=== PATIENT | male | born 1960 | race Caucasian/White ===

== ENCOUNTER → 2017-02-10 | Day surgery (SDC) | payer BC ==
[~2017-02-10] MED LIST: Lactated Ringers 1,000 ML IV SCH; Propofol 200 MG/20 ML SDV IV ONE
[2017-02-10 12:41] VITALS: BP 139/84
--- NOTE | 2017-02-13 07:03 | OR ---
DATE OF OPERATION: 02/10/2017 PREOPERATIVE DIAGNOSIS: 1. ALTERED BOWEL HABITS. 2. ABDOMINAL PAIN. POSTOPERATIVE DIAGNOSIS: 1. ALTERED BOWEL HABITS. 2. ABDOMINAL PAIN. SURGEON: Mike Tirado MD PROCEDURE: FULL-LENGTH COLONOSCOPY WITH RANDOM BIOPSIES X8. 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 COMPLICATIONS: None. SPECIMEN: Random biopsies from cecum to rectum. FINDINGS: 1. Full-length colonoscopy. 2. Focal sigmoid colitis. 3. Moderate sigmoid diverticulosis. RECOMMENDATIONS: Follow up with medical provider once pathology reports are back. INDICATIONS: The patient has been having some ongoing issues with back pain, diarrhea, and abdominal cramping. Dr. Fontanez sent him for colonoscopy after CT scan of the abdomen was benign. DESCRIPTION OF PROCEDURE: The patient was prepped and draped, placed in the left lateral decubitus position. A lubricated Olympus colonoscope was inserted and easily advanced to the cecum. The patient is extremely tortuous and redundant with his colon, but this scope does pass easy, we were able to get into the cecal pouch, but due to the length of the colon and its redundancy I could not unfortunately get into the terminal ileum as his vault made it impossible maneuver into. The bowel prep was otherwise fine, with lot of liquid stool, but all easily suctioned. Upon withdrawal throughout the right transverse and descending colon, no gross abnormalities were seen. We did do random biopsies of the cecum, ascending, and transverse colon along with the splenic flexure. The patient did have some focal but very mild and nonspecific colitis in the mid sigmoid and distal sigmoid area. Biopsies of each of those areas were taken. The rectal vault itself appeared unremarkable. Retroflexion showed no anal lesions. Random biopsy there taken as well as total of 8 biopsies were accomplished. There were no polyps, masses, or signs of malignancy. No signs of any obvious vascular abnormalities. The patient did have moderate diverticular disease from the mid sigmoid to the rectosigmoid junction. Air was suctioned from his colon and the scope was removed without complications. LISSETH/JH /[id number]
== END ==
LOC: CC.SDS 10:56
PROVIDERS: ATTEND Family Medicine
DX: K57.30 Diverticulosis of large intestine without perforation or abscess without bleeding (principal); K52.89 Other specified noninfective gastroenteritis and colitis; Z79.899 Other long term (current) drug therapy
CPT/HCPCS: 45380; J2704; J7120

== ENCOUNTER 2018-06-19 09:40 | Emergency (ER) | payer BC ==
[2018-06-19 10:01] VITALS: BP 134/95
[2018-06-19] MEDS: Ketorolac 60 MG/2 ML SDV IM ONE (10:12)
--- NOTE | 2018-06-19 11:08 | EDM.PDOC ---
ED HPI GENERAL MEDICAL PROBLEM - General Chief Complaint: Upper Extremity Injury/Pain Stated Complaint: SHOULDER PAIN Time Seen by Provider: 06/19/18 09:55 Source of Information: Reports: Patient History Limitations: Reports: No Limitations - History of Present Illness INITIAL COMMENTS - FREE TEXT/NARRATIVE: Patient presents with right shoulder pain. States has had shoulder and neck pain for many months but the pain has been increasing. Was seen by Jeffry Kebede 2 weeks ago and had a shoulder injection. As he continued to have radicular symptoms, thought pain was potentially more cervical spine in nature. He just had a MRI of his neck today. He relates that the pain was so bad in his shoulder last night that he had to take a pain pill. Has been going to the chiropractor without much relief. He does have some numbness in his fingers. Today has pain with abduction and adduction Onset: Gradual Duration: Week(s): Location: Reports: Upper Extremity, Right Quality: Reports: Throbbing Severity: Severe Improves with: Reports: Rest Worsens with: Reports: Movement Associated Symptoms: Reports: No Other Symptoms Treatments CLINICAL SUPPORT MANAGER: Reports: Acetaminophen, NSAIDS Right Shoulder Pain Score (Numeric/FACES): 8 - Related Data Allergies Allergy/AdvReac Type Severity Reaction Status Date / Time No Known Allergies Allergy Verified 06/19/18 09:54 Home Meds: Home Meds Budesonide/Formoterol [Symbicort 160-4.5 MCG] 2 puff INH BID PRN 02/09/17 [ History] Ca Carbonate/Vitamin D3/Vit K [Calcium + D Soft Chewable Tab] 1 tab PO DAILY 04/22 [History] Magnesium Oxide/Mag AA Chelate [Magnesium] 1 cap PO DAILY 02/09/17 [History] Multivitamin [Multivitamins] 1 each PO DAILY 02/09/17 [History] Potassium 1 tab PO DAILY 02/09/17 [History] Vitamin E Acid Succinate [Vitamin E] 1 tab PO DAILY 02/09/17 [History] Albuterol [Ventolin HFA] 2 puff INH Q6HR PRN 01/16/18 [History] Carvedilol 3.125 mg PO BID 06/19/18 [History] atorvaSTATin Calcium [Atorvastatin Calcium] 40 mg PO DAILY 06/19/18 [History] Past Medical History Cardiovascular History: Reports: Blood Clots/VTE/DVT Respiratory History: Reports: Asthma Gastrointestinal History: Reports: GERD - Past Surgical History HEENT Surgical History: Reports: Other (See Below) GI Surgical History: Reports: Appendectomy, Colonoscopy Social & Family History - Family History Family Medical History: Noncontributory - Tobacco Use Smoking Status *Q: Former Smoker Used Tobacco, but Quit: Yes Month/Year Tobacco Last Used: 25 YEARS AGO - Caffeine Use Caffeine Use: Reports: Coffee - Recreational Drug Use Recreational Drug Use: No Review of Systems - Review of Systems Review Of Systems: ROS reveals no pertinent complaints other than HPI. ED EXAM, GENERAL - Physical Exam Exam: See Below Exam Limited By: No Limitations General Appearance: Alert, WD/WN, Mild Distress Head: Normocephalic Neck: Normal Inspection, Supple, Full Range of Motion, Lymphadenopathy (L), Tender Lateral Extremities: Normal Inspection, Limited Range of Motion (Patient has pain with abduction and adduction of right shoulder. Tender to the deltoid tendon insertion point. Trapezius muscle tight, tender. ) Neurological: Alert, Oriented, No Motor/Sensory Deficits Course - Vital Signs Last Recorded V/S: Last Vital Signs Temp 96.5 F 06/19/18 09:42 Pulse 59 L 06/19/18 09:42 Resp 16 06/19/18 09:42 BP 134/95 H 06/19/18 09:42 Pulse Ox 97 06/19/18 09:42 - Orders/Labs/Meds Orders: Active Orders 24 hr Category Date Time Status Shoulder Comp Rt [CR] Stat Exams 06/19/18 10:06 Taken Meds: Medications Discontinued Medications Generic Name Dose Route Start Last Admin Trade Name Cristiano PRN Reason Stop Dose Admin Ketorolac Tromethamine 60 mg 06/19/18 10:05 06/19/18 10:12 Toradol IM 06/19/18 10:06 60 mg ONETIME ONE Administration Orphenadrine Citrate 60 mg 06/19/18 10:06 06/19/18 10:12 Norflex IM 06/19/18 10:07 60 mg ONETIME ONE Administration - Re-Assessments/Exams Free Text/Narrative Re-Assessment/Exam: 06/19/18 Patient noting some relief with the injections. Will have him see PT today. Jaida for pain. Follow up with Jeffry Kebede for results from MRI he had done today and determine if further testing needs to be done on shoulder as xrays appear normal today. Departure - Departure Time of Disposition: 11:06 Disposition: Home, Self-Care 01 Condition: Good Clinical Impression: Right shoulder pain - Discharge Information *PRESCRIPTION DRUG MONITORING PROGRAM REVIEWED*: No *COPY OF PRESCRIPTION DRUG MONITORING REPORT IN PATIENT ELDA: No Referrals: Gerson Kebede PA-C [Primary Care Provider] - Forms: ED Department Discharge Additional Instructions: 1. Rest 2. Ice or heat to shoulder 3. [place] 1-2 tabs as needed for pain 4. See physical therapy as directed 5. Follow up with Jeffry for any future concerns. - My Orders Last 24 Hours: My Active Orders 06/19/18 10:06 Shoulder Comp Rt [CR] Stat - Assessment/Plan Last 24 Hours: My Active Orders 06/19/18 10:06 Shoulder Comp Rt [CR] Stat
== END 2018-06-19 11:15 | disposition home or self-care (01) ==
LOC: CC.ED 09:40
DX: M25.511 Pain in right shoulder (principal); J45.909 Unspecified asthma, uncomplicated; Z79.899 Other long term (current) drug therapy; Z87.891 Personal history of nicotine dependence
CPT/HCPCS: 73030; 96372; 99283; J1885; J2360

== ENCOUNTER 2022-03-13 12:35 | Emergency (ER) | payer OTHER, BC ==
[2022-03-13] MEDS ORDERED: Sodium Chloride 0.9% 10 ML Syringe FLUSH PRN (12:59)
[2022-03-13 13:00] VITALS: BP 165/93; PULSE 61
[2022-03-13] MEDS: Sodium Chloride 0.9% 500 ML IV ONE (13:11)
[2022-03-13 13:19] LABS: CHLORIDE,CL 106 mEq/L (98-106); SODIUM,NA 143 mEq/L (136-145)
[2022-03-13] MEDS: Iopamidol 755 Mg/ML 100 ML Bottle IVPUSH ONE (14:05)
== END 2022-03-13 15:00 | disposition home or self-care (01) ==
LOC: CC.ED 12:35
DX: S22.41XA Multiple fractures of ribs, right side, initial encounter for closed fracture (principal); K21.9 Gastro-esophageal reflux disease without esophagitis; J45.909 Unspecified asthma, uncomplicated; Z79.82 Long term (current) use of aspirin; Z79.899 Other long term (current) drug therapy; V59.9XXA Occupant (driver) (passenger) of pick-up truck or van injured in unspecified traffic accident, initial encounter; Y92.410 Unspecified street and highway as the place of occurrence of the external cause
CPT/HCPCS: 36415; 71260; 80053; 81003; 84484; 85025; 93005; 99284; 99284-25; J7040; Q9967